=== PATIENT | male | born 1955 | race Caucasian/White ===

== ENCOUNTER 2018-12-20 05:11 | Emergency (ER) | payer BC ==
[2018-12-20 05:28] VITALS: BP 142/76
--- NOTE | 2018-12-20 05:35 | EDM.PDOC ---
ED HPI GENERAL MEDICAL PROBLEM - General Chief Complaint: ENT Problem Stated Complaint: SINUSES BLOCKED Time Seen by Provider: 12/20/18 05:16 - History of Present Illness INITIAL COMMENTS - FREE TEXT/NARRATIVE: HISTORY AND PHYSICAL: History of present illness: The patient is a 63-year-old male with a history of hypertension and hypercholesterolemia as well as asthma who has chronic sinus drainage and chronic sinus congestion/blockage and follows with Dr. Byrnes in the clinic and presents with same today. He says that sometimes it feels more inflamed and more blocked than usual but he is not using much [id number] such as an antihistamine like Claritin or [place] or Benadryl. He says in the past he has used a burst of steroids and that has really help with the inflammation and help him get through the acute phases. He also says he has used nasal spray such as Flonase in the past but that has not worked. He has no fevers chills cough shortness of breath chest pain nausea vomiting or diarrhea and has no sore throat or headache. Review of systems: As per history of present illness and below otherwise all systems reviewed and negative. Past medical history: As per history of present illness and as reviewed below otherwise noncontributory. Surgical history: As per history of present illness and as reviewed below otherwise noncontributory. Social history: No reported history of drug or alcohol abuse. Family history: As per history of present illness and as reviewed below otherwise noncontributory. Physical exam: General: Well-developed well-nourished man who is nontoxic and vital signs are reviewed by me. He does have nasal quality to voice HEENT: Atraumatic, normocephalic, pupils reactive, negative for conjunctival pallor or scleral icterus, mucous membranes moist, throat clear, neck supple, nontender, trachea midline. The turbinates are boggy bilaterally left greater than right but there is no discrete sinus tenderness on palpation or tapping and throat is clear of exudates and there is no cervical adenopathy or nuchal rigidity Lungs: Clear to auscultation, breath sounds equal bilaterally, chest nontender. No wheezing stridor or work of breathing Heart: S1S2, regular rate and rhythm no overt murmurs Abdomen: Soft, nondistended, nontender. NABS Pelvis: Deferred Genitourinary: Deferred. Rectal: Deferred. Extremities: Atraumatic, negative for cords or calf pain. Neurovascular unremarkable. Neuro: Awake, alert, oriented. Cranial nerves II through XII unremarkable. Cerebellum unremarkable. Motor and sensory unremarkable throughout. Exam nonfocal. Diagnostics: [] Therapeutics: [] I did discuss with the patient at length [id number] medications and possible ENT referral and he seems to be coming back with solutions and answers about why he does not need to try that pathway. I suggest using Flonase as the season is changing and he also says that that does not help him. He insists that burst of steroids is what usually gets him through an acute episode like this and I will give him a Medrol Dosepak. Impression: Acute on chronic sinus congestion Definitive disposition and diagnosis as appropriate pending reevaluation and review of above. - Related Data Allergies Allergy/AdvReac Type Severity Reaction Status Date / Time No Known Allergies Allergy Verified 12/20/18 05:20 Home Meds: Home Meds Aspirin [Halfprin] 81 mg PO DAILY 07/12/14 [History] Hydrochlorothiazide 1 tab PO DAILY 01/11/15 [History] Potassium Chloride 1 tab PO DAILY 01/11/15 [History] Sertraline [Zoloft] 0.5 tab PO DAILY 01/11/15 [History] amLODIPine Besylate [Amlodipine Besylate] 1 tab PO ACBREAKFAST 01/11/15 [History ] Albuterol [Ventolin HFA] 1 - 2 inh INH ASDIRECTED PRN 07/17/15 [History] Fluticasone/Salmeterol [Advair Diskus 500-50] 1 inh INH BID 07/17/15 [History] atorvaSTATin Calcium [Atorvastatin Calcium] 1 tab PO BEDTIME 07/17/15 [History] Past Medical History HEENT History: Reports: Sinusitis Other HEENT History: Anosmia (loss of smell) Cardiovascular History: Reports: High Cholesterol, Hypertension, Other (See Below) Other Cardiovascular History: Hypertriglyceridemia Respiratory History: Reports: Asthma, Sleep Apnea Other Respiratory History: does not use CPAP Gastrointestinal History: Reports: GERD, Irritable Bowel Syndrome Genitourinary History: Reports: None Musculoskeletal History: Reports: Arthritis, Gout Other Musculoskeletal History: hx: fractured clavicle age 3 or 4 Neurological History: Reports: None Psychiatric History: Reports: Anxiety, Depression Endocrine/Metabolic History: Reports: Obesity/BMI 30+ Other Hematologic History: Reports hx:" Polycythemia, had blood taken off regularly for awhile" Other Dermatologic History: "Have bumps all over" - Infectious Disease History Infectious Disease History: Reports: None - Past Surgical History HEENT Surgical History: Reports: Adenoidectomy, Tonsillectomy, Other (See Below) Oncologic Surgical History: Reports: Lumpectomy - History Comment History Comment: denies etoh Social & Family History - Family History Family Medical History: Noncontributory - Tobacco Use Smoking Status *Q: Never Smoker - Caffeine Use Caffeine Use: Reports: Soda - Recreational Drug Use Recreational Drug Use: No ED ROS GENERAL - Review of Systems Review Of Systems: ROS reveals no pertinent complaints other than HPI. ED EXAM, GENERAL - Physical Exam Exam: See Below (See dictation) Course - Vital Signs Last Recorded V/S: Last Vital Signs Temp 36.2 C 12/20/18 05:18 Pulse 89 12/20/18 05:18 Resp 18 12/20/18 05:18 BP 142/76 H 12/20/18 05:18 Pulse Ox 93 L 12/20/18 05:18 Departure - Departure Time of Disposition: 05:34 Disposition: Home, Self-Care 01 Condition: Good Clinical Impression: Sinus congestion - Discharge Information Referrals: Kelsie Byrnes MD [Primary Care Provider] - Additional Instructions: The following information is given to patients seen in the emergency department who are being discharged to home. This information is to outline your options for follow-up care. We provide all patients seen in our emergency department with a follow-up referral. The need for follow-up, as well as the timing and circumstances, are variable depending upon the specifics of your emergency department visit. If you don't have a primary care physician on staff, we will provide you with a referral. We always advise you to contact your personal physician following an emergency department visit to inform them of the circumstance of the visit and for follow-up with them and/or the need for any referrals to a consulting specialist. The emergency department will also refer you to a specialist when appropriate. This referral assures that you have the opportunity for followup care with a specialist. All of these measure are taken in an effort to provide you with optimal care, which includes your followup. Under all circumstances we always encourage you to contact your private physician who remains a resource for coordinating your care. When calling for followup care, please make the office aware that this follow-up is from your recent emergency room visit. If for any reason you are refused follow-up, please contact the [facility] emergency department at and ask to speak to the emergency department charge nurse. [facility] Primary care- Internal Medicine and Family [address] [address] Please push hydration and use the Medrol Dosepak as prescribed. Try over-the- counter Claritin or [place]annah as we discussed for the next 14 days to see if you' re able to reduce some of the sinus fluid. Use [id number] Tylenol or ibuprofen for any pain and call and schedule a follow-up appointment with your provider in the clinic. Return to ER as needed and as discussed
== END 2018-12-20 05:45 | disposition home or self-care (01) ==
LOC: MW.ED 05:11
DX: R09.81 Nasal congestion (principal); I10 Essential (primary) hypertension; E78.00 Pure hypercholesterolemia, unspecified; F41.9 Anxiety disorder, unspecified; F32.9 Major depressive disorder, single episode, unspecified; Z79.82 Long term (current) use of aspirin; Z79.899 Other long term (current) drug therapy
CPT/HCPCS: 99282; 99283

== ENCOUNTER 2020-01-18 07:12 | Emergency (ER) | payer MEDICARE, BC ==
[2020-01-18] MEDS ORDERED: Albuterol/Ipratropium 3.0-0.5 MG/3 ML Neb Soln NEB ONE (07:18)
--- NOTE | 2020-01-18 07:21 | EDM.PDOC ---
ED HPI GENERAL MEDICAL PROBLEM - General Chief Complaint: Respiratory Problem Stated Complaint: STUCK PILL Time Seen by Provider: 01/18/20 07:19 Source of Information: Reports: Patient History Limitations: Reports: No Limitations - History of Present Illness INITIAL COMMENTS - FREE TEXT/NARRATIVE: 64-year-old male with past medical history of acute asthma, hypertension, hyperlipidemia presenting with a foreign body aspiration. About 30 pounds prior to arrival, the patient was taking his prescribed hydrochlorothiazide when he accidentally aspirated it. This caused him to cough and gag. He was able to cough up some of the pill fragments but is concerned that some of them may be left behind. He presents to the emergency department complaining of persistent coughing and mild shortness of breath with some wheezing. Reports some nausea but no emesis. Onset: Today - Related Data Allergies Allergy/AdvReac Type Severity Reaction Status Date / Time No Known Allergies Allergy Verified 01/18/20 07:14 Home Meds: Home Meds Aspirin [Halfprin] 81 mg PO DAILY 07/12/14 [History] Hydrochlorothiazide 1 tab PO DAILY 01/11/15 [History] Potassium Chloride 1 tab PO DAILY 01/11/15 [History] Sertraline [Zoloft] 0.5 tab PO DAILY 01/11/15 [History] amLODIPine Besylate [Amlodipine Besylate] 1 tab PO ACBREAKFAST 01/11/15 [History ] Albuterol [Ventolin HFA] 1 - 2 inh INH ASDIRECTED PRN 07/17/15 [History] Fluticasone/Salmeterol [Advair Diskus 500-50] 1 inh INH BID 07/17/15 [History] atorvaSTATin Calcium [Atorvastatin Calcium] 1 tab PO BEDTIME 07/17/15 [History] Amoxicillin/Potassium Clav [Augmentin 875-125 Tablet] 1 each PO BID 7 Days #14 tablet 01/18/20 [Rx] Past Medical History HEENT History: Reports: Sinusitis Other HEENT History: Anosmia (loss of smell) Cardiovascular History: Reports: High Cholesterol, Hypertension, Other (See Below) Other Cardiovascular History: Hypertriglyceridemia Respiratory History: Reports: Asthma, Sleep Apnea Other Respiratory History: does not use CPAP Gastrointestinal History: Reports: GERD, Irritable Bowel Syndrome Genitourinary History: Reports: None Musculoskeletal History: Reports: Arthritis, Gout Other Musculoskeletal History: hx: fractured clavicle age 3 or 4 Neurological History: Reports: None Psychiatric History: Reports: Anxiety, Depression Endocrine/Metabolic History: Reports: Obesity/BMI 30+ Other Hematologic History: Reports hx:" Polycythemia, had blood taken off regularly for awhile" Other Dermatologic History: "Have bumps all over" - Infectious Disease History Infectious Disease History: Reports: None - Past Surgical History HEENT Surgical History: Reports: Adenoidectomy, Tonsillectomy, Other (See Below) Oncologic Surgical History: Reports: Lumpectomy - History Comment History Comment: denies etoh Social & Family History - Family History Family Medical History: Noncontributory - Caffeine Use Caffeine Use: Reports: Soda ED ROS GENERAL - Review of Systems Review Of Systems: See Below Constitutional: Denies: Fever, Chills HEENT: Denies: Throat Pain, Throat Swelling Respiratory: Reports: Shortness of Breath, Wheezing, Cough. Denies: Hemoptysis Cardiovascular: Denies: Chest Pain GI/Abdominal: Reports: Nausea. Denies: Abdominal Pain, Vomiting ED EXAM, GENERAL - Physical Exam Exam: See Below Free Text/Narrative:: Vital signs reviewed. Nursing notes reviewed. Constitutional: Awake, alert, non-distressed. Head: Normocephalic, atraumatic. Eyes: EOMI, conjunctiva normal, no discharge, no scleral icterus. Ears, Nose, Throat: External ears and nose normal, moist oral mucosa. No oral pharyngeal swelling. Cardiovascular: 2+ radial pulse, capillary refill less than 2 seconds. Pulmonary: Mild expiratory wheezing throughout, normal work of breathing, no accessory muscle use. Coughing frequently. Abdomen/GI: Nondistended Musculoskeletal: No deformities. Integumentary: Appropriate color for ethnicity, warm, dry, no pallor or jaundice , no rash. Neurologic: Alert, answering questions appropriately, normal speech, no facial droop, moving all extremities well. Psychiatric: Appropriate mood and affect, normal thought process. Course - Vital Signs Text/Narrative:: 64-year-old male with an aspirated pill fragment. Patient hypertensive but [hemodynamically stable, afebrile], well-appearing, looks nontoxic. Differential diagnosis includes but is not limited to: Aspiration pneumonitis, pneumonia, mild asthma exacerbation Mild wheezing on exam. Not hypoxic. No evidence of respiratory distress or compromise. Chest x-ray would likely be of no utility given that a pill would not show up. We gave 2 DuoNeb treatments and the patient felt better. Normal oxygen saturations pre-and post nebulizer treatment. Plan to discharge home with a one-week course of Augmentin to help prevent aspiration pneumonia. He is already on inhaled corticosteroid medication and has plenty of his prescribed albuterol. We will have him follow-up with his primary medical clinic in the next few days if he is not feeling better. Plan: Patient is stable to discharge home with outpatient primary care follow- up. Strict emergency department return precautions were provided, patient indicated understanding. All questions were answered prior to departure. Discharged in good condition. Last Recorded V/S: Last Vital Signs Temp 35.3 C L 01/18/20 07:15 Pulse 86 01/18/20 08:00 Resp 14 01/18/20 08:00 BP 129/76 01/18/20 08:00 Pulse Ox 95 01/18/20 08:00 - Orders/Labs/Meds Orders: Active Orders 24 hr Category Date Time Status RT Aerosol Therapy [RC] ASDIRECTED Care 01/18/20 07:18 Active Meds: Medications Discontinued Medications Generic Name Dose Route Start Last Admin Trade Name Freq PRN Reason Stop Dose Admin Albuterol/Ipratropium 6 ml 01/18/20 07:18 01/18/20 07:27 Duoneb 3.0-0.5 Mg/3 Ml NEB 01/18/20 07:19 3 ml ONETIME ONE Administration Departure - Departure Time of Disposition: 07:33 Disposition: Home, Self-Care 01 Condition: Good Clinical Impression: Aspiration of foreign body in respiratory tract Qualifiers: Encounter type: initial encounter Qualified Code(s): T17.908A - Unspecified foreign body in respiratory tract, part unspecified causing other injury, initial encounter - Discharge Information *PRESCRIPTION DRUG MONITORING PROGRAM REVIEWED*: Not Applicable *COPY OF PRESCRIPTION DRUG MONITORING REPORT IN PATIENT MARIANELA: Not Applicable Prescriptions: Amoxicillin/Potassium Clav [Augmentin 875-125 Tablet] 1 each PO BID 7 Days #14 tablet Instructions: Aspiration Pneumonia Forms: ED Department Discharge Additional Instructions: Thank you for choosing the [facility] emergency department in [place] for your medical needs today. It was a pleasure caring for you. You were seen in the emergency department for trouble breathing after you inhaled one of your pills. We prescribed a one-week course of antibiotics, take them as directed. Continue your normal asthma medications. Follow-up with your primary doctor in the next few days if you are not feeling better. Come back to the ER immediately if you are having trouble breathing or fever ( temperature 100.4 or higher). Please return the emergency department immediately if your symptoms worsen or if you feel worse. The following information is given to patients seen in the emergency department who are being discharged. This information is to outline your options for follow -up care. We provide all patients seen in our emergency department with a follow -up referral. The need for follow-up, as well as the timing and circumstances, are variable depending upon the specifics of your emergency department visit. If you don't have a primary care physician on staff, we will provide you with a referral. We always advise you to contact your personal physician following an emergency department visit to inform them of the circumstance of the visit and for follow-up with them and/or the need for any referrals to a consulting specialist. The emergency department will also refer you to a specialist when appropriate. This referral assures that you have the opportunity for follow-up care with a specialist. All of these measure are taken in an effort to provide you with optimal care, which includes your follow-up. Under all circumstances we always encourage you to contact your private physician who remains a resource for coordinating your care. When calling for follow-up care, please make the office aware that this follow-up is from your recent emergency room visit. If for any reason you are refused follow-up, please contact the [facility] Emergency Department at and asked to speak to the emergency department charge nurse. If you do not have a primary care physician that is caring for you, you can contact these clinics below to set up an appointment to establish care: [facility] - Primary Care [address] [place] [address] [id number] [address] [place] [address] Sepsis Event Note - Focused Exam Vital Signs: Vital Signs Temp Pulse Resp BP Pulse Ox 01/18/20 08:00 86 14 129/76 95 01/18/20 07:15 35.3 C L 100 22 H 152/85 H 98 Date Exam was Performed: 01/18/20 Time Exam was Performed: 08:06 - My Orders Last 24 Hours: My Active Orders 01/18/20 07:18 RT Aerosol Therapy [RC] ASDIRECTED - Assessment/Plan Last 24 Hours: My Active Orders 01/18/20 07:18 RT Aerosol Therapy [RC] ASDIRECTED
[2020-01-18 08:04] VITALS: BP 129/76; PULSE 86
== END 2020-01-18 08:00 | disposition home or self-care (01) ==
LOC: MW.ED 07:12
DX: T17.908A Unspecified foreign body in respiratory tract, part unspecified causing other injury, initial encounter (principal); J45.909 Unspecified asthma, uncomplicated; I10 Essential (primary) hypertension; E78.5 Hyperlipidemia, unspecified; F41.9 Anxiety disorder, unspecified; F32.9 Major depressive disorder, single episode, unspecified; E66.9 Obesity, unspecified; Z68.35 Body mass index [BMI] 35.0-35.9, adult; M10.9 Gout, unspecified; Z79.82 Long term (current) use of aspirin; Z79.899 Other long term (current) drug therapy
CPT/HCPCS: 94640; 99282; 99284-25; J7620-GY

== ENCOUNTER 2020-02-23 03:35 | Emergency (ER) | payer BC, OTHER ==
--- NOTE | 2020-02-23 04:15 | EDM.PDOC ---
ED HPI GENERAL MEDICAL PROBLEM - General Chief Complaint: Respiratory Problem Stated Complaint: LOBE OF LUNG HURTS A LITTLE Time Seen by Provider: 02/23/20 03:37 Source of Information: Reports: Patient - History of Present Illness INITIAL COMMENTS - FREE TEXT/NARRATIVE: History of present illness: 64-year-old male presenting with cough and right-sided discomfort in his chest which he describes as "feels like something going on in the lobe." Does have a history of asthma and has had prior pneumonias in the past. He has had some productive sputum which is clear/whitish. He has not had any fevers nor discomfort. He has not had to use his nebulizer more than usual. He did also have some sore throat and postnasal drip. He had been trying to gargle with peroxide and he did think that that helped. Review of systems: As per history of present illness and below otherwise all systems reviewed and negative. Past medical history: As per history of present illness and as reviewed below otherwise noncontributory. Asthma no tobacco Surgical history: As per history of present illness and as reviewed below otherwise noncontributory. Social history: No reported history of drug or alcohol abuse. Never smoker Family history: As per history of present illness and as reviewed below otherwise noncontributory. Physical exam: GEN: no acute distress, well appearing HEENT: Atraumatic, normocephalic, mucous membranes moist, Neck: supple, nontender, trachea midline. Lungs: No respiratory distress. Heart: RRR Extremities: Atraumatic. Neurovascularly intact. Neuro: Awake, alert, oriented. Neuro Exam nonfocal. Skin: warm, dry, no lesions Diagnostics: [] Therapeutics: [] MDM: Impression: [] Plan: [] Definitive disposition and diagnosis as appropriate pending reevaluation and review of above. - Related Data Allergies Allergy/AdvReac Type Severity Reaction Status Date / Time No Known Allergies Allergy Verified 02/23/20 03:58 Home Meds: Home Meds Aspirin [Halfprin] 81 mg PO DAILY 07/12/14 [History] Hydrochlorothiazide 1 tab PO DAILY 01/11/15 [History] Potassium Chloride 1 tab PO DAILY 01/11/15 [History] Sertraline [Zoloft] 0.5 tab PO DAILY 01/11/15 [History] amLODIPine Besylate [Amlodipine Besylate] 1 tab PO ACBREAKFAST 01/11/15 [History] Albuterol [Ventolin HFA] 1 - 2 inh INH ASDIRECTED PRN 07/17/15 [History] Fluticasone/Salmeterol [Advair Diskus 500-50] 1 inh INH BID 07/17/15 [History] atorvaSTATin Calcium [Atorvastatin Calcium] 1 tab PO BEDTIME 07/17/15 [History] Amoxicillin/Potassium Clav [Augmentin 875-125 Tablet] 1 each PO BID 7 Days #14 tablet 01/18/20 [Rx] Azithromycin [Zithromax] 250 mg PO DAILY #6 tab 02/23/20 [Rx] Past Medical History HEENT History: Reports: Sinusitis Other HEENT History: Anosmia (loss of smell) Cardiovascular History: Reports: High Cholesterol, Hypertension, Other (See Below) Other Cardiovascular History: Hypertriglyceridemia Respiratory History: Reports: Asthma, Sleep Apnea Other Respiratory History: does not use CPAP Gastrointestinal History: Reports: GERD, Irritable Bowel Syndrome Genitourinary History: Reports: None Musculoskeletal History: Reports: Arthritis, Gout Other Musculoskeletal History: hx: fractured clavicle age 3 or 4 Neurological History: Reports: None Psychiatric History: Reports: Anxiety, Depression Endocrine/Metabolic History: Reports: Obesity/BMI 30+ Other Hematologic History: Reports hx:" Polycythemia, had blood taken off regularly for awhile" Other Dermatologic History: "Have bumps all over" - Infectious Disease History Infectious Disease History: Reports: Measles - Past Surgical History Head Surgeries/Procedures: Reports: Other (See Below) HEENT Surgical History: Reports: Adenoidectomy, Tonsillectomy, Other (See Below) Oncologic Surgical History: Reports: Lumpectomy - History Comment History Comment: denies etoh Social & Family History - Family History Family Medical History: Noncontributory - Tobacco Use Smoking Status *Q: Never Smoker - Caffeine Use Caffeine Use: Reports: Soda - Recreational Drug Use Recreational Drug Use: No ED ROS GENERAL - Review of Systems Review Of Systems: See Below (See HPI) ED EXAM, GENERAL - Physical Exam Exam: See Below (See HPI) EKG INTERPRETATION EKG Interpretation Comments: EKG performed today at 4:55 AM, sinus rhythm, rate 64, left axis deviation, no acute ischemia, no STEMI. Interpreted by me. Course - Vital Signs Text/Narrative:: Cough, sore throat, focal area of right-sided chest pain. No known cardiac risk factors. X-ray negative. COVID swab negative. Suspect bronchitis. Given history of asthma will cover with azithromycin. First dose given here. Last Recorded V/S: Last Vital Signs Temp 97.4 F 02/23/20 03:49 Pulse 80 02/23/20 05:15 Resp 18 02/23/20 05:15 BP 140/82 02/23/20 05:15 Pulse Ox 98 02/23/20 05:15 - Orders/Labs/Meds Orders: Active Orders 24 hr Category Date Time Status EKG Documentation Completion [RC] STAT Care 02/23/20 04:45 Active Labs: Laboratory Tests 02/23/20 Range/Units 03:50 COVID-19 ([facility]) NEGATIVE (NEGATIVE) Meds: Medications Discontinued Medications Generic Name Dose Route Start Last Admin Trade Name Augieq PRN Reason Stop Dose Admin Azithromycin 500 mg 02/23/20 04:45 02/23/20 05:04 Zithromax PO 500 mg Q24H LIZBETH Administration - Re-Assessments/Exams Free Text/Narrative Re-Assessment/Exam: 02/23/20 04:47 The patient is feeling well. In no acute distress. Patient was sleeping comfortably when I examined him, and when I woke him up, he reported he was feeling well. Discussed x-ray and COVID results and recommendation for EKG and starting azithromycin. Patient agrees. Departure - Departure Time of Disposition: 05:08 Disposition: Home, Self-Care 01 Clinical Impression: Bronchitis - Discharge Information Prescriptions: Azithromycin [Zithromax] 250 mg PO DAILY #6 tab Instructions: Shortness of Breath, Adult, [id number], Acute Bronchitis, Adult, [id number], Upper Respiratory Infection, Adult, [id number] Referrals: Kelsie Byrnes MD [Primary Care Provider] - Forms: ED Department Discharge Additional Instructions: The following information is given to patients seen in the emergency department who are being discharged to home. This information is to outline your options for follow-up care. We provide all patients seen in our emergency department with a follow-up referral. The need for follow-up, as well as the timing and circumstances, are variable depending upon the specifics of your emergency department visit. If you don't have a primary care physician on staff, we will provide you with a referral. We always advise you to contact your personal physician following an emergency department visit to inform them of the circumstance of the visit and for follow-up with them and/or the need for any referrals to a consulting specialist. The emergency department will also refer you to a specialist when appropriate. This referral assures that you have the opportunity for follow-up care with a specialist. All of these measure are taken in an effort to provide you with optimal care, which includes your follow-up. Under all circumstances we always encourage you to contact your private physician who remains a resource for coordinating your care. When calling for follow-up care, please make the office aware that this follow-up is from your recent emergency room visit. If for any reason you are refused follow-up, please contact the [facility] Emergency Department at and asked to speak to the emergency department charge nurse. Please take the azithromycin antibiotic until all the pills are done. Please return to the emergency department if you have any worsening symptoms or if you develop a high fever or severe difficulty breathing or chest pain. Please follow-up with your primary care physician in 1 to 2 days. Sepsis Event Note (ED) - Evaluation Sepsis Screening Result: No Definite Risk - Focused Exam Vital Signs: Vital Signs Temp Pulse Resp BP Pulse Ox 02/23/20 05:15 80 18 140/82 98 02/23/20 03:49 97.4 F 87 18 127/88 95 - My Orders Last 24 Hours: My Active Orders 02/23/20 04:45 EKG Documentation Completion [RC] STAT - Assessment/Plan Last 24 Hours: My Active Orders 02/23/20 04:45 EKG Documentation Completion [RC] STAT
--- NOTE | 2020-02-23 04:37 | CR ---
INDICATION: Cough, dyspnea COMPARISON: None TECHNIQUE: PA and lateral views of the chest FINDINGS: The lungs are clear. There is no pleural effusion or pneumothorax. The cardiomediastinal silhouette is normal. The osseous structures are unremarkable. IMPRESSION: No acute intrathoracic process. Dictated by Mel Hein MD @ Feb 23 2020 4:35AM Signed by Dr. Mel Hein @ Feb 23 2020 4:35AM
[2020-02-23] MEDS ORDERED: Azithromycin 250 MG Tab PO SCH (04:45)
[2020-02-23 05:19] VITALS: BP 140/82; PULSE 80
== END 2020-02-23 05:19 | disposition home or self-care (01) ==
LOC: MW.ED 03:35
DX: J40 Bronchitis, not specified as acute or chronic (principal); I10 Essential (primary) hypertension; E78.00 Pure hypercholesterolemia, unspecified; J45.909 Unspecified asthma, uncomplicated; M10.9 Gout, unspecified; F41.9 Anxiety disorder, unspecified; F32.9 Major depressive disorder, single episode, unspecified; E66.9 Obesity, unspecified; Z20.828 Contact with and (suspected) exposure to other viral communicable diseases; Z79.82 Long term (current) use of aspirin; Z79.899 Other long term (current) drug therapy
CPT/HCPCS: 71046; 87635; 93005; 99284; A9270; 99283; U0002

== ENCOUNTER 2021-08-25 06:50 | Emergency (ER) | payer BC, MEDICARE ==
[2021-08-25] MEDS ORDERED: Sodium Chloride 0.9% 10 ML Syringe FLUSH PRN (07:18)
[2021-08-25] MEDS ORDERED: Sodium Chloride 0.9% 2.5 ML Syringe FLUSH PRN (07:18)
[2021-08-25] MEDS ORDERED: Benzonatate 100 MG Cap PO ONE (07:19)
[2021-08-25] MEDS ORDERED: Ketorolac 30 MG/ML SDV IVPUSH ONE (08:19)
[2021-08-25 08:27] LABS: CORONAVIRUS COVID-19 NAA NEGATIVE (NEGATIVE); INFLUENZA A NAA NEGATIVE (NEGATIVE); INFLUENZA B NAA NEGATIVE (NEGATIVE)
[2021-08-25 08:31] LABS: BLOOD UREA NITROGEN,BUN 25 mg/dL (7.0-18.0); CARBON DIOXIDE,CO2 28.7 mmol/L (21.0-32.0); CHLORIDE,CL 101 mmol/L (98-107); GLUCOSE RANDOM 129 mg/dL (74-106); POTASSIUM,K 3.8 mmol/L (3.5-5.1); SODIUM,NA 138 mmol/L (136-148)
[2021-08-25 09:05] VITALS: BP 120/71; PULSE 82
== END 2021-08-25 09:06 | disposition home or self-care (01) ==
LOC: MW.ED 06:50
DX: R09.1 Pleurisy (principal); I10 Essential (primary) hypertension; E78.00 Pure hypercholesterolemia, unspecified; E66.9 Obesity, unspecified; Z79.899 Other long term (current) drug therapy; Z20.822 Contact with and (suspected) exposure to COVID-19; Z79.82 Long term (current) use of aspirin; Z68.36 Body mass index [BMI] 36.0-36.9, adult
CPT/HCPCS: 0240U; 36415; 71045; 80053; 84484; 85025; 93005; 96374; 99284; A9270; J1885

== ENCOUNTER 2021-11-07 02:16 | Emergency (ER) | payer MEDICARE ==
[2021-11-07] MEDS ORDERED: Proparacaine 0.5% Ophth Soln 15 ML Bottle EYELF STA (02:42)
[2021-11-07] MEDS ORDERED: Tetracaine HCl/PF 0.5% 4 ML Bottle ONE (02:48)
[2021-11-07] MEDS ORDERED: Tetracaine HCl/PF 0.5% 4 ML Bottle EYERT STA (02:48)
[2021-11-07] MEDS ORDERED: Diphtheria,Pertussis(Acell),Tetanus Vaccine 0.5 ML Syringe IM ONE (02:58)
[2021-11-07 03:24] VITALS: BP 131/83; PULSE 73
== END 2021-11-07 03:24 | disposition home or self-care (01) ==
LOC: MW.ED 02:16
DX: S05.01XA Injury of conjunctiva and corneal abrasion without foreign body, right eye, initial encounter (principal); Z23 Encounter for immunization; I10 Essential (primary) hypertension; K21.9 Gastro-esophageal reflux disease without esophagitis; J45.909 Unspecified asthma, uncomplicated; E78.00 Pure hypercholesterolemia, unspecified; E66.9 Obesity, unspecified; Z68.36 Body mass index [BMI] 36.0-36.9, adult; Z79.82 Long term (current) use of aspirin; Z79.899 Other long term (current) drug therapy; W45.8XXA Other foreign body or object entering through skin, initial encounter; W29.8XXA Contact with other powered hand tools and household machinery, initial encounter
CPT/HCPCS: 90471; 90715; 99282; 99283

== ENCOUNTER 2021-11-24 05:01 | Emergency (ER) | payer MEDICARE ==
[2021-11-24] MEDS ORDERED: Glucagon,Human Recombinant 1 MG Vial IVPUSH ONE (05:24)
[2021-11-24] MEDS ORDERED: Ondansetron 4 MG/2 ML SDV IVPUSH ONE (05:25)
[2021-11-24 06:26] VITALS: BP 138/78; PULSE 89
== END 2021-11-24 06:27 | disposition home or self-care (01) ==
LOC: MW.ED 05:01
DX: T18.128A Food in esophagus causing other injury, initial encounter (principal); I10 Essential (primary) hypertension; F32.A Depression, unspecified; F41.9 Anxiety disorder, unspecified; E78.00 Pure hypercholesterolemia, unspecified; E66.9 Obesity, unspecified; Z68.36 Body mass index [BMI] 36.0-36.9, adult; Z79.899 Other long term (current) drug therapy
CPT/HCPCS: 96374; 99283; J1610; 99282

== ENCOUNTER 2022-02-22 10:53 | Day surgery (SDC) | payer MEDICARE ==
[2022-02-22] MEDS: Lactated Ringers 1,000 ML IV SCH (11:12)
[2022-02-22] MEDS ORDERED: Ketamine 500 mg/10 ML MDV ONE (12:30)
[2022-02-22] MEDS ORDERED: Midazolam 1 MG/ML 2 ML SDV ONE (12:30)
[2022-02-22] MEDS ORDERED: Propofol 200 MG/20 ML SDV ONE (12:30)
[2022-02-22] MEDS ORDERED: fentaNYL 100 MCG/2 ML SDV ONE (12:30)
[2022-02-22] MEDS ORDERED: Ondansetron 4 MG/2 ML SDV IVPUSH PRN (15:01)
[2022-02-22] MEDS ORDERED: Acetaminophen 325 MG Tab PO PRN (15:01)
[2022-02-22] MEDS ORDERED: Lactated Ringers 1,000 ML IV SCH (15:15)
[2022-02-22 17:01] VITALS: BP 132/76; PULSE 78
== END 2022-02-22 16:53 | disposition home or self-care (01) ==
LOC: MW.SDS 10:53
PROVIDERS: ATTEND Surgery
DX: D12.2 Benign neoplasm of ascending colon (principal); D12.3 Benign neoplasm of transverse colon; D12.5 Benign neoplasm of sigmoid colon; K57.30 Diverticulosis of large intestine without perforation or abscess without bleeding; K29.50 Unspecified chronic gastritis without bleeding; K22.70 Barrett's esophagus without dysplasia; K20.90 Esophagitis, unspecified without bleeding; K29.00 Acute gastritis without bleeding; K29.80 Duodenitis without bleeding; K44.9 Diaphragmatic hernia without obstruction or gangrene; K26.9 Duodenal ulcer, unspecified as acute or chronic, without hemorrhage or perforation; F41.9 Anxiety disorder, unspecified; M10.9 Gout, unspecified; E66.9 Obesity, unspecified; E78.00 Pure hypercholesterolemia, unspecified; J45.909 Unspecified asthma, uncomplicated; Z91.048 Other nonmedicinal substance allergy status; Z79.899 Other long term (current) drug therapy; Z98.890 Other specified postprocedural states; Z83.71 Family history of colonic polyps; Z68.36 Body mass index [BMI] 36.0-36.9, adult
CPT/HCPCS: 00813; J2250; J2704; J3010; J3490; J7120

== ENCOUNTER 2022-06-21 15:01 | Emergency (ER) | payer MEDICARE ==
[2022-06-21 17:23] LABS: BLOOD UREA NITROGEN,BUN 18 mg/dL (7.0-18.0); CARBON DIOXIDE,CO2 29.2 mmol/L (21.0-32.0); CHLORIDE,CL 100 mmol/L (98-107); GLUCOSE RANDOM 139 mg/dL (74-106); LIPASE 80 U/L (73-393); POTASSIUM,K 3.5 mmol/L (3.5-5.1); SODIUM,NA 138 mmol/L (136-148)
[2022-06-21 17:34] LABS: ESTIMATED GFR 93 mL/min (>60)
[2022-06-21] MEDS ORDERED: Aspirin 81 MG Tab.Chew PO ONE (17:49)
[2022-06-21] MEDS ORDERED: Iopamidol 755 MG/ML 500 ML Multipack Bottle IVPUSH STA (18:10)
[2022-06-21] MEDS ORDERED: Enoxaparin 100 MG/1 ML Syringe SUBCUT ONE (18:18)
[2022-06-21 21:21] VITALS: BP 105/73; PULSE 102
== END 2022-06-21 21:24 ==
LOC: MW.ED 15:01
DX: I21.4 Non-ST elevation (NSTEMI) myocardial infarction (principal); N23 Unspecified renal colic; E78.00 Pure hypercholesterolemia, unspecified; I10 Essential (primary) hypertension; E66.9 Obesity, unspecified; Z68.35 Body mass index [BMI] 35.0-35.9, adult; Z91.048 Other nonmedicinal substance allergy status; Z79.82 Long term (current) use of aspirin; Z79.899 Other long term (current) drug therapy; Z20.822 Contact with and (suspected) exposure to COVID-19
CPT/HCPCS: 36415; 71275; 74174; 80053; 81001; 83690; 83735; 84484; 85025; 85610; 85730; 86140; 93005; 96372; 99285; A9270; J1650; Q9967; U0002

== ENCOUNTER 2023-05-15 08:53 | Emergency (ER) | payer MEDICARE, OTHER ==
[2023-05-15] MEDS ORDERED: Acetaminophen 325 MG Tab PO ONE (09:15)
[2023-05-15] MEDS ORDERED: Ketorolac 30 MG/ML SDV IM ONE (09:15)
[2023-05-15 10:56] LABS: BASOPHILS ABSOLUTE AUTO 0.1 K/uL (0.0-0.1); BASOPHILS PERCENT AUTO 1.1 % (0.0-1.5); EOSINOPHILS ABSOLUTE AUTO 0.7 K/uL (0.0-0.7); EOSINOPHILS PERCENT AUTO 10.5 % (0.0-7.0); HEMATOCRIT 43.4 % (38.0-50.0); HEMOGLOBIN 14.7 g/dL (13.0-17.0); LYMPHOCYTES ABSOLUTE AUTO 1.1 K/uL (0.6-2.4); MEAN CORPUSCULAR HEMOGLOBIN 29.1 pg (27.0-32.0); MEAN CORPUSCULAR HGB CONC 33.9 g/dL (31.0-37.0); MEAN CORPUSCULAR VOLUME 85.8 fL (80.0-98.0); MONOCYTES ABSOLUTE AUTO 0.5 K/uL (0.0-0.8); MONOCYTES PERCENT AUTO 7.5 % (0.0-15.0); NEUTROPHILS ABSOLUTE AUTO 4.3 K/uL (1.4-5.7); NEUTROPHILS PERCENT AUTO 64.9 % (48.0-80.0); NRBC ABSOLUTE 0 K/uL; PLATELET COUNT,PLT 186 K/uL (150-400); RED BLOOD CELL COUNT 5.06 M/uL (4.50-5.90); WHITE BLOOD CELL COUNT,WBC 6.57 K/uL (4.0-11.0)
[2023-05-15 11:11] LABS: BILIRUBIN,URINE NEGATIVE (NEGATIVE); COLOR,URINE YELLOW; GLUCOSE,URINE NEGATIVE (NEGATIVE); KETONES,URINE NEGATIVE (NEGATIVE); LEUKOCYTE ESTERASE,URINE TRACE (NEGATIVE); NITRITE,URINE NEGATIVE (NEGATIVE); OCCULT BLOOD,URINE TRACE-INTACT (NEGATIVE); PH,URINE 5.5 (5.0-8.0); PROTEIN,URINE NEGATIVE (NEGATIVE); UROBILINOGEN,URINE 0.2 EU/dL (<2.0)
[2023-05-15 11:15] LABS: APPEARANCE,URINE HAZY
[2023-05-15 11:19] LABS: BACTERIA,URINE FEW (NEGATIVE); EPITHELIAL CELLS,URINE OCCASIONAL (NONE-FEW)
[2023-05-15 11:28] LABS: ALBUMIN 3.3 g/dL (3.4-5.0); BILIRUBIN TOTAL 0.8 mg/dL (0.2-1.0); CALCIUM 8.5 mg/dL (8.5-10.1); CARBON DIOXIDE,CO2 27.8 mmol/L (21.0-32.0); CREATININE 0.9 mg/dL (0.8-1.3); EST CRCL DRUG DOSING (CG) 74.94 mL/min; POTASSIUM,K 3.6 mmol/L (3.5-5.1); PROTEIN TOTAL,TP 6.6 g/dL (6.4-8.2)
[2023-05-15 12:52] VITALS: BP 147/76; PULSE 61
== END 2023-05-15 12:52 | disposition home or self-care (01) ==
LOC: MW.ED 08:53
DX: N13.2 Hydronephrosis with renal and ureteral calculous obstruction (principal); I10 Essential (primary) hypertension; E78.00 Pure hypercholesterolemia, unspecified; J45.909 Unspecified asthma, uncomplicated; M10.9 Gout, unspecified; Z91.048 Other nonmedicinal substance allergy status; Z79.82 Long term (current) use of aspirin; Z79.899 Other long term (current) drug therapy
CPT/HCPCS: 36415; 72128; 72131; 80053; 81001; 85025; 96372; 99284; A9270; J1885; 99283

== ENCOUNTER 2023-06-29 16:06 | Emergency (ER) | payer MEDICARE, OTHER ==
[2023-06-29] MEDS ORDERED: Sodium Chloride 0.9% 10 ML Syringe FLUSH PRN (16:19)
[2023-06-29] MEDS ORDERED: Sodium Chloride 0.9% 2.5 ML Syringe FLUSH PRN (16:19)
[2023-06-29] MEDS ORDERED: Nitroglycerin 0.4 MG Tab.SL SL PRN (16:20)
[2023-06-29] MEDS ORDERED: Aspirin 81 MG Tab.Chew PO ONE (16:20)
[2023-06-29 16:43] LABS: BASOPHILS ABSOLUTE AUTO 0.11 K/uL (0.00-0.20); BASOPHILS PERCENT AUTO 1.4 % (0.0-1.0); EOSINOPHILS ABSOLUTE AUTO 1.05 K/uL (0.00-0.45); EOSINOPHILS PERCENT AUTO 13.7 % (0.0-6.0); HEMOGLOBIN 14.8 g/dL (14.0-18.0); IMMATURE GRAN ABSOLUTE AUTO 0.02 K/uL (0.00-0.05); IMMATURE GRAN PERCENT AUTO 0.3 % (0.0-0.4); LYMPHOCYTES ABSOLUTE AUTO 1.61 K/uL (1.00-4.80); MEAN CORPUSCULAR HGB CONC 34.4 g/dL (32.0-36.0); MEAN CORPUSCULAR VOLUME 84.3 fL (83.0-99.0); MEAN PLATELET VOLUME 10.2 fL (9.4-12.4); MONOCYTES ABSOLUTE AUTO 0.63 K/uL (0.00-0.80); MONOCYTES PERCENT AUTO 8.2 % (0.0-8.0); NEUTROPHILS ABSOLUTE AUTO 4.25 K/uL (1.80-7.70); NEUTROPHILS PERCENT AUTO 55.4 % (41.0-71.0); PLATELET COUNT,PLT 209 K/uL (150-400); WHITE BLOOD CELL COUNT,WBC 7.67 K/uL (3.9-11.3)
[2023-06-29 17:03] LABS: INR 1.07 (0.86-1.11)
[2023-06-29 17:12] LABS: A/G RATIO 0.9 (0.9-1.6); ALBUMIN 3.4 g/dL (3.4-5.0); BILIRUBIN TOTAL 0.5 mg/dL (0.2-1.0); CALCIUM 8.5 mg/dL (8.5-10.1); CARBON DIOXIDE,CO2 28.4 mmol/L (21.0-32.0); EST CRCL DRUG DOSING (CG) 69.72 mL/min; POTASSIUM,K 3.9 mmol/L (3.5-5.1); PROTEIN TOTAL,TP 7.1 g/dL (6.4-8.2)
[2023-06-29] MEDS ORDERED: Iopamidol 755 MG/ML 500 ML Multipack Bottle IVPUSH ONE (18:57)
[2023-06-29 20:01] VITALS: BP 154/88; PULSE 75
== END 2023-06-29 20:01 | disposition home or self-care (01) ==
LOC: MW.ED 16:06
DX: R07.89 Other chest pain (principal); I10 Essential (primary) hypertension; E78.00 Pure hypercholesterolemia, unspecified; J45.909 Unspecified asthma, uncomplicated; K21.9 Gastro-esophageal reflux disease without esophagitis; M19.90 Unspecified osteoarthritis, unspecified site; E66.9 Obesity, unspecified; Z79.82 Long term (current) use of aspirin; Z79.899 Other long term (current) drug therapy; Z91.048 Other nonmedicinal substance allergy status; Z68.35 Body mass index [BMI] 35.0-35.9, adult
CPT/HCPCS: 36415; 71045; 71275; 80053; 83880; 84484; 85025; 85379; 85610; 93005; 99285; A9270; J3490; Q9967

== ENCOUNTER → 2023-07-08 | Day surgery (SDC) | payer MEDICARE, OTHER ==
[~2023-07-08] MED LIST: Acetaminophen/HYDROcodone 325-5 MG Tab PO PRN; Albuterol 0.083% 2.5 MG/3 ML Neb Soln NEB PRN; Bupivacaine 0.5% 30 ML SDV ONE; Dexamethasone 4 MG/ML 5 ML MDV ONE; Glycopyrrolate 0.2 MG/ML SDV IM ONE; HYDROmorphone 1 MG/ML Syringe IVPUSH PRN; Lactated Ringers 1,000 ML IV SCH; Lidocaine 2% 5 ML SDV ONE; Metoclopramide 10 MG/2 ML SDV IVPUSH PRN; Morphine 2 MG/ML SYRINGE IVPUSH PRN; Naloxone 0.4 MG/ML SDV IVPUSH PRN; Ondansetron 4 MG/2 ML SDV IVPUSH PRN; Ondansetron 4 MG/2 ML SDV ONE; Propofol 200 MG/20 ML SDV ONE; droPERidol 5 MG/2 ML SDV IVPUSH PRN; fentaNYL 100 MCG/2 ML SDV ONE; fentaNYL 50 MCG/ML SDV IVPUSH PRN
[2023-07-08 09:50] VITALS: BP 151/90; PULSE 71
== END | disposition home or self-care (01) ==
LOC: MW.SDS 06:32
PROVIDERS: ATTEND Surgery
DX: N62 Hypertrophy of breast (principal); J45.30 Mild persistent asthma, uncomplicated; J44.9 Chronic obstructive pulmonary disease, unspecified; F41.9 Anxiety disorder, unspecified; I25.10 Atherosclerotic heart disease of native coronary artery without angina pectoris; K22.70 Barrett's esophagus without dysplasia; I25.2 Old myocardial infarction; G47.30 Sleep apnea, unspecified; E78.2 Mixed hyperlipidemia; E66.9 Obesity, unspecified; Z68.37 Body mass index [BMI] 37.0-37.9, adult; Z95.5 Presence of coronary angioplasty implant and graft; Z79.82 Long term (current) use of aspirin; Z79.02 Long term (current) use of antithrombotics/antiplatelets; Z79.899 Other long term (current) drug therapy
CPT/HCPCS: 11403; 12031; J2405; J2704; J3010; J3490; J7120; J1100

== ENCOUNTER 2024-03-09 07:59 | Day surgery (SDC) | payer MEDICARE ==
[2024-03-09] MEDS ORDERED: Propofol 200 MG/20 ML SDV ONE (08:41)
[2024-03-09] MEDS ORDERED: Water For Injection, Sterile 20 ML ONE (08:42)
[2024-03-09] MEDS ORDERED: dexmedeTOMIDine HCl 200 MCG/2 ML SDV ONE (08:42)
[2024-03-09] MEDS: Lactated Ringers 1,000 ML IV SCH (08:56)
[2024-03-09] MEDS ORDERED: Ondansetron 4 MG/2 ML SDV ONE (09:47)
[2024-03-09] MEDS ORDERED: Lactated Ringers 1,000 ML IV SCH (10:15)
[2024-03-09 13:33] VITALS: BP 118/70; PULSE 81
== END 2024-03-09 10:42 | disposition home or self-care (01) ==
LOC: MW.SDS 07:59
PROVIDERS: ATTEND Surgery
DX: K22.70 Barrett's esophagus without dysplasia (principal); K29.80 Duodenitis without bleeding; K29.50 Unspecified chronic gastritis without bleeding; K44.9 Diaphragmatic hernia without obstruction or gangrene; E78.00 Pure hypercholesterolemia, unspecified; I10 Essential (primary) hypertension; F41.9 Anxiety disorder, unspecified; J45.909 Unspecified asthma, uncomplicated; I25.10 Atherosclerotic heart disease of native coronary artery without angina pectoris; E03.9 Hypothyroidism, unspecified; E66.9 Obesity, unspecified; G47.33 Obstructive sleep apnea (adult) (pediatric); K21.9 Gastro-esophageal reflux disease without esophagitis; Z91.09 Other allergy status, other than to drugs and biological substances; Z79.899 Other long term (current) drug therapy; Z79.82 Long term (current) use of aspirin; Z79.890 Hormone replacement therapy; Z79.84 Long term (current) use of oral hypoglycemic drugs; Z68.41 Body mass index [BMI] 40.0-44.9, adult; Z95.5 Presence of coronary angioplasty implant and graft
CPT/HCPCS: 43239; 88305; J2405; J2704; J7120; 00731; J3490

== ENCOUNTER 2024-05-12 15:18 | Emergency (ER) | payer MEDICARE ==
[2024-05-12 17:09] VITALS: BP 147/64; PULSE 68
== END 2024-05-12 17:04 | disposition home or self-care (01) ==
LOC: MW.ED 15:18
DX: R04.0 Epistaxis (principal); I10 Essential (primary) hypertension; I25.2 Old myocardial infarction; E78.00 Pure hypercholesterolemia, unspecified; J44.9 Chronic obstructive pulmonary disease, unspecified; E11.9 Type 2 diabetes mellitus without complications; E66.9 Obesity, unspecified; Z79.84 Long term (current) use of oral hypoglycemic drugs; Z79.899 Other long term (current) drug therapy; Z79.51 Long term (current) use of inhaled steroids; Z79.82 Long term (current) use of aspirin; Z91.048 Other nonmedicinal substance allergy status; Z68.27 Body mass index [BMI] 27.0-27.9, adult
CPT/HCPCS: 30903; 30905; 99283; 99283-25

== ENCOUNTER 2024-07-07 10:56 | Emergency (ER) | payer MEDICARE ==
[2024-07-07 11:55] VITALS: BP 113/69; PULSE 77
== END 2024-07-07 11:59 | disposition home or self-care (01) ==
LOC: MW.ED 10:56
DX: J32.9 Chronic sinusitis, unspecified (principal); I10 Essential (primary) hypertension; I25.2 Old myocardial infarction; E78.00 Pure hypercholesterolemia, unspecified; J44.89 Other specified chronic obstructive pulmonary disease; M19.90 Unspecified osteoarthritis, unspecified site; E11.9 Type 2 diabetes mellitus without complications; E66.9 Obesity, unspecified; Z90.89 Acquired absence of other organs; Z91.048 Other nonmedicinal substance allergy status; Z79.51 Long term (current) use of inhaled steroids; Z79.82 Long term (current) use of aspirin; Z79.84 Long term (current) use of oral hypoglycemic drugs; Z79.899 Other long term (current) drug therapy; Z68.39 Body mass index [BMI] 39.0-39.9, adult; Z75.8 Other problems related to medical facilities and other health care
CPT/HCPCS: 99283

== ENCOUNTER 2024-07-23 07:18 | Day surgery (SDC) | payer MEDICARE ==
[2024-07-23] MEDS ORDERED: Bupivacaine 0.5% 30 ML SDV ONE (07:26)
[2024-07-23] MEDS ORDERED: Lidocaine 1% 20 ML MDV ONE (07:26)
[2024-07-23] MEDS ORDERED: Propofol 200 MG/20 ML SDV ONE (07:29)
[2024-07-23] MEDS ORDERED: Lidocaine 2% 5 ML SDV ONE (07:29)
[2024-07-23] MEDS ORDERED: Midazolam 1 MG/ML 2 ML SDV ONE (07:29)
[2024-07-23] MEDS ORDERED: fentaNYL 100 MCG/2 ML SDV ONE ×2 (07:29→08:42)
[2024-07-23] MEDS ORDERED: fentaNYL 50 MCG/ML SDV IVPUSH PRN (08:03)
[2024-07-23] MEDS ORDERED: Phenylephrine HCl In 0.9% NaCl 1 MG/10 ML Syringe IVPUSH PRN (08:03)
[2024-07-23] MEDS ORDERED: Morphine 2 MG/ML SYRINGE IVPUSH PRN (08:03)
[2024-07-23] MEDS ORDERED: Naloxone 0.4 MG/ML SDV IVPUSH PRN (08:03)
[2024-07-23] MEDS ORDERED: HYDROmorphone 1 MG/ML Syringe IVPUSH PRN (08:03)
[2024-07-23] MEDS ORDERED: Ondansetron 4 MG/2 ML SDV IVPUSH PRN (08:03)
[2024-07-23] MEDS ORDERED: Albuterol 0.083% 2.5 MG/3 ML Neb Soln NEB PRN (08:03)
[2024-07-23] MEDS ORDERED: Rocuronium Bromide 50 MG/5 ML Syringe ONE (08:03)
[2024-07-23] MEDS ORDERED: Lidocaine 2% 11 ML Jelly Filled Syringe ONE (08:03)
[2024-07-23] MEDS ORDERED: propofoL 500 MG/50 ML 50 ML ONE (08:03)
[2024-07-23] MEDS ORDERED: Metoclopramide 10 MG/2 ML SDV IVPUSH PRN (08:03)
[2024-07-23] MEDS: Lactated Ringers 1,000 ML IV SCH (08:05)
[2024-07-23] MEDS ORDERED: ePHEDrine 50 MG/ML SDV ONE (08:22)
[2024-07-23] MEDS ORDERED: Dexamethasone 4 MG/ML 5 ML MDV ONE (08:34)
[2024-07-23] MEDS ORDERED: Ondansetron 4 MG/2 ML SDV ONE (08:34)
[2024-07-23] MEDS ORDERED: Sugammadex Sodium 200 MG/2 ML VIAL IV ONE (08:35)
[2024-07-23] MEDS ORDERED: Acetaminophen/HYDROcodone 325-5 MG Tab PO PRN (09:12)
[2024-07-23] MEDS ORDERED: Lactated Ringers 1,000 ML IV SCH (09:15)
[2024-07-23 10:13] VITALS: BP 132/81; PULSE 68
== END 2024-07-23 10:00 | disposition home or self-care (01) ==
LOC: MW.SDS 07:18
PROVIDERS: ATTEND Surgery
DX: N62 Hypertrophy of breast (principal); I25.10 Atherosclerotic heart disease of native coronary artery without angina pectoris; I10 Essential (primary) hypertension; E03.9 Hypothyroidism, unspecified; E78.1 Pure hyperglyceridemia; F41.9 Anxiety disorder, unspecified; J45.30 Mild persistent asthma, uncomplicated; Z79.890 Hormone replacement therapy; Z79.899 Other long term (current) drug therapy; Z91.048 Other nonmedicinal substance allergy status
CPT/HCPCS: 19120; 88305; A9270; J0131; J0665; J1100; J2405; J2704; J3010; J3490; J7120; 00400; J2250